=== PATIENT | male | born 1985 | race American Indian/Alaskan Native ===

== ENCOUNTER 2020-07-13 14:46 | Emergency (ER) | payer OTHER ==
[2020-07-13 14:55] VITALS: BP 128/85
[2020-07-13] MEDS ORDERED: KETOROLAC 30 MG/1 ML INJ IV ONE (17:46)
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
--- NOTE | 2020-07-13 18:54 | XRay Report ---
LUMBAR SPINE 3 VIEWS INDICATION: MAIN COMPARISON: None. FINDINGS: No acute, displaced fracture is seen. Alignment is within normal limits. Disc space height is maintained. No significant degenerative changes. CONCLUSION: 1. No acute findings. Signer Name: Darrius Reynoso MD Signed: 07/13/2020 6:50 PM Workstation Name: [id number]
== END 2020-07-13 19:57 | disposition home or self-care (01) ==
LOC: ED 14:46
DX: S39.012A Strain of muscle, fascia and tendon of lower back, initial encounter (principal); Z79.1 Long term (current) use of non-steroidal anti-inflammatories (NSAID); Z79.899 Other long term (current) drug therapy; V49.49XA Driver injured in collision with other motor vehicles in traffic accident, initial encounter; W22.10XA Striking against or struck by unspecified automobile airbag, initial encounter; Y93.89 Activity, other specified; Y92.410 Unspecified street and highway as the place of occurrence of the external cause; Y99.8 Other external cause status
CPT/HCPCS: 72100; 96374; 99283; J1885